=== PATIENT | female | born 1975 | race Caucasian/White ===

== ENCOUNTER 2017-08-13 10:14 | Emergency (ER) | payer BC, MEDICARE, OTHER ==
[2017-08-13 12:02] LABS: HEMOGLOBIN 12.8 gm/dl (12.3-15.3); RED BLOOD COUNT 3.97 M/UL (4.00-5.10); WHITE BLOOD COUNT 8.1 K/UL (4.5-11.0)
[2017-08-13 12:19] LABS: BUN/CREATININE RATIO 20 (0-10)
== END 2017-08-13 15:12 | disposition home or self-care (01) ==
LOC: ER1 10:14
PROVIDERS: Emergency Medicine
DX: R10.31 Right lower quadrant pain (principal); R00.0 Tachycardia, unspecified; R11.0 Nausea; F17.200 Nicotine dependence, unspecified, uncomplicated; Z86.711 Personal history of pulmonary embolism; Z86.718 Personal history of other venous thrombosis and embolism; Z88.1 Allergy status to other antibiotic agents
CPT/HCPCS: 36415; 80053; 83690; 84703; 85025; 96374; 96375; 96376; 99284; J2270; J2405; J7050; Q9962

== ENCOUNTER 2020-12-15 15:47 | Emergency (ER) | payer BC, MEDICARE, OTHER ==
[~2020-12-15 15:47] MED LIST: ADULT TUSS100 MG/5 M PO; ADVAIR 500-501 EACH INH; BENTYL 10MG CAP10 MG PO; BENTYL 20MG TAB20 MG PO; BUSPAR 10MG10 MG PO; CLEOCIN HCL300 MG PO; COMBIVENT0.074 GM/I INH; COZAAR 50MG TAB50 MG PO; COZAAR50 MG PO; DOXYCYCLINE HY100 MG PO; FELDENE10 MG PO; FLEXERIL 10 MG10 MG PO; FLONASE 0.05% N16 GM; GLUCOPHAGE1000 MG PO; IBUPROFEN800 MG PO; IMDUR ER TAB 3030 MG PO; IPRAT-ALBUT 0.5-3 ML INH; JANUVIA50 MG PO; K-DUR TAB 20 M20 MEQ PO; LASIX20 MG PO; LEVAQUIN750 MG PO; LIPITOR TAB 2020 MG PO; LODINE CAP 300300 MG PO; LORTAB 5-325 M1 EACH PO; MEDROL4 MG PO; METFORMIN HCL500 MG PO; METOPROLOL TART25 MG PO; MOBIC7.5 MG PO; MULTI FOR HER1 EACH PO; NAPROSYN500 MG PO; NAPROXEN 375 M375 MG PO; NORCO 5-325 TA1 EACH PO; NORCO 7.5-3251 EACH PO; NORVASC 5 MG TAB5 MG PO; OMNICEF 300 MG300 MG PO; PREDNISONE 50 M50 MG PO; PREDNISONE10 MG PO; PREDNISONE20 MG PO; PROTONIX40 MG PO; PROZAC40 MG PO; PYRIDIUM100 MG PO; SPIRIVA HANDIH18 MCG INH; TRAMADOL HCL50 MG PO; TRAZODONE HCL150 MG PO; ULTRAM50 MG PO; VALTREX1000 MG PO; VENTOLIN HFA 66.7 GM INH; VIBRAMYCIN100 MG PO; VISTARIL25 MG PO; VITAMIN D250000 UNIT PO; VOLTAREN EC 5050 MG PO; Viscous lidocaine2% TOP; XARELTO 15 MG T15 MG PO; ZANAFLEX4 MG PO; ZOFRAN 4 MG TAB4 MG PO; ZOFRAN ODT 4 MG4 MG PO; ZOFRAN ODT 4 MG4 MG SL; ZOFRAN4 MG PO; ZYRTEC10 MG PO
[2020-12-15 18:56] LABS: HEMOGLOBIN 10.6 gm/dl (12.3-15.3); RED BLOOD COUNT 4.23 M/UL (4.00-5.10); WHITE BLOOD COUNT 15.3 K/UL (4.5-11.0)
[2020-12-15 18:59] LABS: BUN/CREATININE RATIO 35 (0-10)
== END 2020-12-15 21:39 | disposition home or self-care (01) ==
LOC: ER1 15:47
PROVIDERS: Emergency Medicine
DX: N81.6 Rectocele (principal); R33.9 Retention of urine, unspecified; E11.9 Type 2 diabetes mellitus without complications; J44.9 Chronic obstructive pulmonary disease, unspecified; F17.200 Nicotine dependence, unspecified, uncomplicated; Z87.442 Personal history of urinary calculi; Z87.42 Personal history of other diseases of the female genital tract; Z79.4 Long term (current) use of insulin; Z88.0 Allergy status to penicillin; Z88.8 Allergy status to other drugs, medicaments and biological substances
CPT/HCPCS: 80053; 81001; 83690; 84703; 85025; 99284

== ENCOUNTER 2022-02-21 03:09 | Emergency (ER) | payer MEDICARE, OTHER ==
[2022-02-21 05:32] LABS: HEMOGLOBIN 13.5 gm/dl (12.3-15.3); RED BLOOD COUNT 4.19 M/UL (4.00-5.10); WHITE BLOOD COUNT 10.8 K/UL (4.5-11.0)
[2022-02-21 05:56] LABS: BUN/CREATININE RATIO 25 (0-10)
[2022-02-21] MEDS ORDERED: VIBRAMYCIN100 MG PO (07:08)
[2022-02-21] MEDS ORDERED: ZOFRAN ODT 4 MG4 MG PO (07:08)
[2022-02-23 15:11] LABS: LYME IGG/IGM AB <0.91 ISR (0.00-0.90)
[2022-02-25 16:11] LABS: E. CHAFFEENSIS (HME) IGG TITER Negative (Neg:<1:64); E. CHAFFEENSIS (HME) IGM TITER Negative (Neg:<1:20)
== END 2022-02-21 07:30 | disposition home or self-care (01) ==
LOC: ER1 03:09
PROVIDERS: Emergency Medicine; Urology
DX: T14.8XXA Other injury of unspecified body region, initial encounter (principal); Z20.822 Contact with and (suspected) exposure to COVID-19; R51.9 Headache, unspecified; R50.9 Fever, unspecified; E11.9 Type 2 diabetes mellitus without complications; I10 Essential (primary) hypertension; F17.200 Nicotine dependence, unspecified, uncomplicated; W57.XXXA Bitten or stung by nonvenomous insect and other nonvenomous arthropods, initial encounter
CPT/HCPCS: 0240U; 70450; 71045; 80053; 80307; 81001; 83605; 83690; 83735; 84703; 85025; 86618; 86666; 86753; 86757; 96374; 96375; 99284; J1200; J1885; J2765

== ENCOUNTER 2022-04-09 08:19 | Emergency (ER) | payer MEDICARE, OTHER | END 2022-04-09 09:20 | disposition left against medical advice (07) | LOC: ER1 08:19 | DX: Z53.21 Procedure and treatment not carried out due to patient leaving prior to being seen by health care provider (principal) ==